=== PATIENT | female | born 1955 | race Caucasian/White ===

== ENCOUNTER → 2021-05-07 | Outpatient (CLI) | payer MEDICARE ==
[2021-05-07 10:56] LABS: Basophils # (A) 0.04 X 10*3/uL (0.00-0.10); Basophils % (A) 0.9 %; Eosinophils # (A) 0.15 X 10*3/uL (0.04-0.35); Eosinophils % (A) 3.5 %; HCT 39.9 % (37.2-46.3); HGB 12.5 g/dL (12.0-15.0); Lymphocytes # (A) 1.31 X 10*3/uL (0.90-5.00); Lymphocytes % (A) 30.8 %; MCH 28.7 pg (27.0-32.0); MCHC 31.3 g/dL (32.0-37.0); MCV 91.5 fL (80.0-97.0); Mean Platelet Volume 10.9 fL (9.5-12.2); Monocytes # (A) 0.35 X 10*3/uL (0.20-1.00); Monocytes % (A) 8.2 %; Neutrophils # (A) 2.39 X 10*3/uL (1.80-7.70); Neutrophils % (A) 56.4 %; Platelet Count 293 X 10*3/uL (140-440); RBC 4.36 X 10*6/uL (4.10-5.20); RDW 12.4 % (11.5-14.5); WBC 4.25 X 10*3/uL (4.50-10.00)
[2021-05-07 11:18] LABS: Chol/HDL Ratio 4.11 Ratio; LDL Cholesterol,Calculated 131.8 mg/dL (0.0-131.0)
[2021-05-07 11:21] LABS: ALT 11 U/L (8-44); AST 19 U/L (13-35); Alkaline Phosphatase 122 U/L (41-126); GGT 13 U/L (0-38); LDH 158 U/L (120-246); Total Protein 7.2 g/dL (6.2-8.2)
[2021-05-07 11:25] LABS: African American GFR (CKD) 93.6 (60.0-200.0); Blood Urea Nitrogen 15.2 mg/dL (9.0-27.0); Calcium 9.4 mg/dL (8.7-10.3); Carbon Dioxide 22.6 mmol/L (20.0-27.5); Chloride 102 mmol/L (96-109); Glucose 91 mg/dL (70-110); Non-African American GFR(CKD) 80.8 (60.0-200.0); Phosphorus 3.7 mg/dL (2.4-5.1); Potassium 4.5 mmol/L (3.5-5.5); Sodium 137 mmol/L (135-145); Uric Acid 4.9 mg/dL (2.9-7.7)
== END | disposition home or self-care (01) ==
LOC: LABWHC1 07:31
PROVIDERS: ATTEND Family Medicine
DX: Z00.00 Encounter for general adult medical examination without abnormal findings (principal); Z12.31 Encounter for screening mammogram for malignant neoplasm of breast; Z13.820 Encounter for screening for osteoporosis
CPT/HCPCS: 36415; 80051; 80061; 82247; 82310; 82565; 82947; 82977; 83615; 84075; 84100; 84155; 84450; 84460; 84520; 84550; 85025

== ENCOUNTER → 2022-01-11 | Outpatient (CLI) | payer MEDICARE ==
[2022-01-11 18:25] LABS: Basophils # (A) 0.06 X 10*3/uL (0.00-0.10); Basophils % (A) 1.4 %; Eosinophils # (A) 0.13 X 10*3/uL (0.04-0.35); HCT 39.4 % (37.2-46.3); HGB 12.6 g/dL (12.0-15.0); Immature Grans, Automated 0.5 %; Lymphocytes # (A) 1.34 X 10*3/uL (0.90-5.00); Lymphocytes % (A) 30.8 %; MCH 29.1 pg (27.0-32.0); Mean Platelet Volume 10.9 fL (9.5-12.2); Monocytes # (A) 0.42 X 10*3/uL (0.20-1.00); Monocytes % (A) 9.7 %; NRBC Per 100 WBC 0 /100 WBCS (0.0-0.0); Neutrophils # (A) 2.38 X 10*3/uL (1.80-7.70); Neutrophils % (A) 54.6 %; Platelet Count 296 X 10*3/uL (140-440); RBC 4.33 X 10*6/uL (4.10-5.20); RDW 13.1 % (11.5-14.5); WBC 4.35 X 10*3/uL (4.50-10.00)
[2022-01-11 18:35] LABS: ALT 10 U/L (8-44); AST 19 U/L (13-35); African American GFR (CKD) 87.8 (60.0-200.0); Albumin 4.5 g/dL (3.8-4.9); Albumin/Globulin Ratio 1.67 (1.60-3.17); Alkaline Phosphatase 107 U/L (41-126); BUN/Creat Ratio 28.13 Ratio (12.00-20.00); Blood Urea Nitrogen 22.5 mg/dL (9.0-27.0); Calcium 9.5 mg/dL (8.7-10.3); Carbon Dioxide 21.7 mmol/L (20.0-27.5); Chloride 101 mmol/L (96-109); Chol/HDL Ratio 4.08 Ratio; Globulin 2.7 g/dL (1.6-3.3); Glucose 81 mg/dL (70-110); LDH 191 U/L (120-246); LDL Cholesterol,Calculated 114.6 mg/dL (0.0-131.0); Non-African American GFR(CKD) 75.8 (60.0-200.0); Potassium 4.5 mmol/L (3.5-5.5); Sodium 135 mmol/L (135-145); Total Protein 7.2 g/dL (6.2-8.2); Uric Acid 5.6 mg/dL (2.9-7.7)
== END | disposition home or self-care (01) ==
LOC: LABWHC1 08:54
PROVIDERS: ATTEND Family Medicine
DX: Z00.00 Encounter for general adult medical examination without abnormal findings (principal)
CPT/HCPCS: 36415; 80053; 80061; 83615; 84550; 85025